=== PATIENT | male | born 1940 | race Caucasian/White ===

== ENCOUNTER 2018-01-18 06:52 | Day surgery (SDC) | payer MEDICARE ==
[2018-01-18] MEDS ORDERED: Lactated Ringers 1,000 ML IV SCH (08:00)
[2018-01-18] MEDS ORDERED: fentaNYL 100 MCG/2 ML SDV ONE (09:15)
[2018-01-18] MEDS ORDERED: Midazolam 1 MG/ML 2 ML SDV ONE (09:15)
[2018-01-18] MEDS ORDERED: Propofol 200 MG/20 ML SDV ONE (09:15)
[2018-01-18 10:55] VITALS: BP 126/90
--- NOTE | 2018-01-18 14:27 | OR ---
DATE OF PROCEDURE: 01/18/2018 PROCEDURE: Colonoscopy. FINDINGS: 1. Diverticulosis, mild to moderate. COMPLICATIONS: None. CRITICAL SYSTEMS TECHNICIAN: None. ANESTHESIA: MAC. PREOPERATIVE DIAGNOSIS: Screening colonoscopy. POSTOPERATIVE DIAGNOSIS: Screening colonoscopy. RISKS: Risks, benefits, alternatives, and limitations including, but not limited to infection, bleeding, and perforation were explained to the patient, who wished to proceed. PROCEDURE IN DETAIL: The patient was placed in left lateral decubitus position. Digital rectal exam was performed without abnormality. The scope was introduced and advanced atraumatically to the ileocecal valve. The scope was brought back to the ascending, transverse, descending colon, and retroflexed. Diverticulosis was described as mild and mostly limited to sigmoid colon. No abnormalities and retroflexed. No polyps, old or new blood. The patient tolerated the procedure well. Babak Tinoco MD /[id number]
== END 2018-01-18 11:03 | disposition home or self-care (01) ==
LOC: JP.SDS 06:52
PROVIDERS: ATTEND Surgery
DX: Z12.11 Encounter for screening for malignant neoplasm of colon (principal); K57.30 Diverticulosis of large intestine without perforation or abscess without bleeding; I25.10 Atherosclerotic heart disease of native coronary artery without angina pectoris; I65.29 Occlusion and stenosis of unspecified carotid artery; E78.5 Hyperlipidemia, unspecified; Z88.8 Allergy status to other drugs, medicaments and biological substances
CPT/HCPCS: G0121; J2250; J2704; J3010; J7120